=== PATIENT | male | born 1975 | race Two or more races ===

== ENCOUNTER 2022-01-26 10:25 | Emergency (ER) | payer OTHER ==
[~2022-01-26] VITALS: Ht 185.4 cm; Wt 90.7 kg
[2022-01-26 10:41] VITALS: BP 122/63
--- NOTE | 2022-01-26 10:41 | NUR ---
TO ER BED 7. BIBS C/O BILATERAL HANDS AND FEET ITCHING AND PAIN X 6 MONTHS.
[2022-01-26] MEDS ORDERED: HYDR-500 PO (11:18)
[2022-01-26] MEDS ORDERED: CLOT15CR5 TP (11:18)
== END 2022-01-26 11:28 | disposition home or self-care (01) ==
LOC: ER 10:50
DX: R21 Rash and other nonspecific skin eruption (principal)